=== PATIENT | female | born 1945 | race Caucasian/White ===

== ENCOUNTER 2017-05-03 06:01 | Emergency (ER) | payer MEDICARE ==
[~2017-05-03] VITALS: Ht 152.4 cm; Wt 77.1 kg
[~2017-05-03 06:01] MED LIST: ASPIRIN EC325 MG PO; CARDURA4 MG PO; CARTIA XT300 MG PO; LIPITOR40 MG PO; LOSARTAN-HCTZ1 EAC1 PO; NEURONTIN100 MG PO
[2017-05-13] MEDS ORDERED: ZOFRAN ODT4 MG PO (16:35)
[2017-05-13] MEDS ORDERED: LOSARTAN-HCTZ1 EAC1 PO (16:35)
[2017-05-13] MEDS ORDERED: ASPIRIN325 MG PO (16:35)
[2017-05-13] MEDS ORDERED: AMILORIDE HCL-H1 TAB PO (16:36)
[2017-05-13] MEDS ORDERED: ATORVASTATIN CA80 MG PO (16:36)
[2017-05-13] MEDS ORDERED: AMLODIPINE BESY10 MG PO (16:36)
[2017-05-13] MEDS ORDERED: ESCITALOPRAM OX20 MG PO (16:37)
== END 2017-05-03 11:22 | disposition home or self-care (01) ==
LOC: ED 06:01
DX: N95.0 Postmenopausal bleeding (principal); I12.9 Hypertensive chronic kidney disease with stage 1 through stage 4 chronic kidney disease, or unspecified chronic kidney disease; N18.9 Chronic kidney disease, unspecified; Z86.73 Personal history of transient ischemic attack (TIA), and cerebral infarction without residual deficits; Z87.891 Personal history of nicotine dependence; Z88.1 Allergy status to other antibiotic agents; Z79.82 Long term (current) use of aspirin; Z79.899 Other long term (current) drug therapy
CPT/HCPCS: 76830; 76856; 80053; 85025; 99284

== ENCOUNTER 2017-05-04 10:48 | Emergency (ER) | payer MEDICARE ==
[~2017-05-04] VITALS: Ht 152.4 cm; Wt 77.1 kg
[2017-05-13] MEDS ORDERED: ZOFRAN ODT4 MG PO (16:35)
[2017-05-13] MEDS ORDERED: LOSARTAN-HCTZ1 EAC1 PO (16:35)
[2017-05-13] MEDS ORDERED: ASPIRIN325 MG PO (16:35)
[2017-05-13] MEDS ORDERED: ATORVASTATIN CA80 MG PO (16:36)
[2017-05-13] MEDS ORDERED: AMLODIPINE BESY10 MG PO (16:36)
[2017-05-13] MEDS ORDERED: AMILORIDE HCL-H1 TAB PO (16:36)
[2017-05-13] MEDS ORDERED: ESCITALOPRAM OX20 MG PO (16:37)
== END 2017-05-04 14:15 | disposition home or self-care (01) ==
LOC: ED 10:48
DX: N93.9 Abnormal uterine and vaginal bleeding, unspecified (principal); I10 Essential (primary) hypertension; Z87.891 Personal history of nicotine dependence; Z88.1 Allergy status to other antibiotic agents; Z79.899 Other long term (current) drug therapy
CPT/HCPCS: 85025; 96360; 99284; J7040

== ENCOUNTER 2017-05-15 05:50 | Day surgery (SDC) | payer MEDICARE ==
[~2017-05-15] VITALS: Ht 154.9 cm; Wt 81.7 kg
[~2017-05-15 05:50] MED LIST changes: +AMILORIDE HCL-H1 TAB PO; +AMLODIPINE BESY10 MG PO; +ASPIRIN325 MG PO; +ATORVASTATIN CA80 MG PO; +ESCITALOPRAM OX20 MG PO; +ZOFRAN ODT4 MG PO
--- NOTE | 2017-05-15 08:50 | NUR ---
05/15/17 0850 Ivet Clinton 0825 PATIENT ARRIVES TO PACU UNRESPONSIVE TO PAIN OR VERBAL STIMULI. ORAL AIRWAY IN PLACE, MASK AT 6 LITERS.
--- NOTE | 2017-05-15 10:50 | NUR ---
1015 wants to rest longer.1040 up to br small red drainage. gilberto pad on. wants to get dressed declines offer of lunch. has taken crackers and jello and drank 200ml water.
--- NOTE | 2017-05-15 11:08 | NUR ---
REVIEWED DC INSTRUCTIONS WITH PT AND FAMILY STATES THEY UNDERSTAND AND NO QUESTIONS.
--- NOTE | 2017-05-16 09:42 | OR ---
[facility] [address] [place], [place] [address] Signed DATE OF OPERATION: 05/15/2017 SURGEON: Titi White MD PREOPERATIVE DIAGNOSES: Postmenopausal bleeding, cervical lesion, and cervical mass. POSTOPERATIVE DIAGNOSES: Postmenopausal bleeding, cervical lesion, cervical mass, and Asherman syndrome. PROCEDURE: Hysteroscopy with endometrial biopsy and colposcopy with cervical biopsies. VENIPUNCTURIST: Dr. Menon. ANESTHESIA: General. ESTIMATED BLOOD LOSS: 10 mL. SPECIMEN: Endometrium and cervical biopsies x4. DRAINS: None. FINDINGS: Vagina atrophic, small introitus. There is no blood seen. No lesions seen. No mass is palpable. The cervix was thin, was opened approximately 1.5 cm with minimal anterior cervix and even less posterior cervix. There was apparent necrotic tissue in the os mostly along the posterior endocervix. The previously seen polypoidal mass is no longer present, but the cervix did appear dilated as if mass had been present recently. Uterine cavity had multiple adhesions between the anterior and posterior marley in the lower uterine cavity with only a small opening that did finally enlarge into normal-appearing upper cavity with 2 ostia seen and upper endometrial tissue appearing thin normal and otherwise normal in appearance. No polyps or fibroids were seen. COMPLICATIONS: Electronically Signed By: TITI WHITE MD 05/16/17 0942 PATIENT NAME: SHANE RAMOS OPERATIVE REPORT DATE OF : 47 PHYSICIAN: TITI WHITE MD REPORT #: [id number] REPORT IS CONFIDENTIAL AND NOT TO BE RELEASED WITHOUT AUTHORIZATION [facility] [address] [place] [place] [address] Signed None. DESCRIPTION OF PROCEDURE: The patient was brought to the operating room, placed in supine position. After adequate general anesthesia was obtained, she was placed in a dorsal lithotomy position, prepped and draped in usual sterile fashion. A weighted speculum was placed in the vagina and a [place] placed anteriorly, the above findings were noted. The hysteroscope easily entered the cervix into the lower segment. At this point, the cavity appeared quite small, but one small channel could be seen going up higher into the uterus. The MyoSure LITE biopsy instrument was then placed through the hysteroscope and the lower segment endometrial tissue was carefully biopsied and taken down. Under direct visualization, this was done small pieces at the time and taking particular attention to stay within the cavity after biopsying the lower segment, the upper uterine cavity was then easily visualized. Once good view of the uterine cavity was seen, the lower segment was biopsied further and the upper cavity sampled again with MyoSure LITE. Sterile saline was used as the distending medium and the fluid deficit noted was 960 mL, but the socks under the patient was soaked and most of the loss was noted right at the beginning when much of fluid was spilling out of the vagina and could not be collected, so the actual estimated fluid loss was only about 300 mL. Good hemostasis was noted in the uterine cavity, so the hysteroscope was removed, cervix examined further. Stitches of 0 chromic were placed at 3 o'clock and 9 o'clock in the cervix for retention and control bleeding. Acetic acid was placed on the cervix, but no acetowhite lesions were seen. Lugol's solution was also attempted, but no obvious lesions were seen this way either. There was a grayish necrotic-looking area at 6 o'clock and again the entire cervix was quite thin and so it was decided not to proceed with cone biopsy because of the minimum cervical tissue left and so a 4-quadrant biopsies were done at 6 o'clock, 3 o'clock, 9 o'clock, and 12 o'clock. The Bovie was used to cauterize any small amount of bleeding and then Monsel's placed in the cervix. Sheet of ACell was then placed in the cervical os and tied in place with retention stitches. Good hemostasis was noted. All instruments removed from the vagina. The patient tolerated the procedure well, went to recovery room in good condition. The sponge, needle, and instrument counts were correct at the end of the procedure. MD MATHEW Argueta/MODL /[id number] Electronically Signed By: TITI WHITE MD 05/16/17 0942 PATIENT NAME: SHANE RAMOS OPERATIVE REPORT DATE OF : 47 PHYSICIAN: TITI WHITE MD REPORT #: [id number] REPORT IS CONFIDENTIAL AND NOT TO BE RELEASED WITHOUT AUTHORIZATION [facility] [address] [place] [address] [place] [address] Signed cc: Ignacio Bell DO Electronically Signed By: TITI WHITE MD 05/16/17 0942 PATIENT NAME: SHANE RAMOS ANN OPERATIVE REPORT DATE OF : 47 PHYSICIAN: TITI WHITE MD REPORT #: [id number] REPORT IS CONFIDENTIAL AND NOT TO BE RELEASED WITHOUT AUTHORIZATION
== END 2017-05-15 11:00 | disposition home or self-care (01) ==
LOC: OPS 05:50 → DS 05:50 → OPS 06:45
PROVIDERS: General Practice
PROC: 0UDB8ZX Extraction of Endometrium, Via Natural or Artificial Opening Endoscopic, Diagnostic (ICD-10-PCS; principal; 2017-05-15 06:45)
DX: N72 Inflammatory disease of cervix uteri (principal); N80.0 Endometriosis of uterus; I12.9 Hypertensive chronic kidney disease with stage 1 through stage 4 chronic kidney disease, or unspecified chronic kidney disease; N18.3 Chronic kidney disease, stage 3 (moderate); R73.01 Impaired fasting glucose; M85.80 Other specified disorders of bone density and structure, unspecified site; G62.9 Polyneuropathy, unspecified; F32.9 Major depressive disorder, single episode, unspecified; I87.8 Other specified disorders of veins; Z87.891 Personal history of nicotine dependence; Z86.73 Personal history of transient ischemic attack (TIA), and cerebral infarction without residual deficits; Z88.8 Allergy status to other drugs, medicaments and biological substances; Z98.890 Other specified postprocedural states; Z79.899 Other long term (current) drug therapy
CPT/HCPCS: 00952; 88305; J1100; J1644; J2250; J2405; J2704; J3010; J7120

== ENCOUNTER 2017-08-08 19:40 | Emergency (ER) | payer MEDICARE ==
[~2017-08-08] VITALS: Ht 154.9 cm; Wt 81.7 kg
[2017-08-08] MEDS ORDERED: K-TAB ER20 MEQ PO (22:04)
== END 2017-08-08 22:34 | disposition home or self-care (01) ==
LOC: ED 19:40
DX: R51 Headache (principal); E87.6 Hypokalemia; E86.0 Dehydration; I10 Essential (primary) hypertension; Z86.73 Personal history of transient ischemic attack (TIA), and cerebral infarction without residual deficits; Z88.8 Allergy status to other drugs, medicaments and biological substances; Z88.1 Allergy status to other antibiotic agents; Z88.2 Allergy status to sulfonamides; Z79.899 Other long term (current) drug therapy
CPT/HCPCS: 70450; 80053; 85025; 96374; 99284; J1170; J7030

== ENCOUNTER 2018-05-01 14:13 | Inpatient (IN) | payer MEDICARE, OTHER ==
[~2018-05-01] VITALS: Ht 154.9 cm; Wt 85.0 kg
[~2018-05-01 14:13] MED LIST changes: +K-TAB ER20 MEQ PO
--- OUTSIDE RECORDS SUMMARY | 2018-05-01 14:18 | XMS ---
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 E[facility]ero[facility] VISIT COUNT (12 MO.) 5 NOEL Haywood TOTAL 5 NOTE: Visits indicate total known visits. 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 - Personal history of transient ischemic attack (TIA), and cerebral infarction without residual deficits - Essential (primary) hypertension - Allergy status to other drugs, medicaments and biological substances status - Allergy status to sulfonamides status - Headache - Allergy status to other antibiotic agents status - Dehydration - Hypokalemia 05/05/2017 00:00 NOEL Arcin[facility] OR TYPE: Emergency COMPLAINT: - VAGINAL BLEEDING 05/04/2017 10:49 NOEL Arcin[facility] OR TYPE: Emergency COMPLAINT: - VAGINAL BLEEDING DIAGNOSES: - Essential (primary) hypertension - Personal history of nicotine dependence - Allergy status to other antibiotic agents status - 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 - Complication associated with artificial fertilization, unspecified - Abnormal uterine and vaginal bleeding, unspecified 05/03/2017 06:01 NOEL Arcin[facility] OR TYPE: Emergency COMPLAINT: - VAGINAL BLEEDING DIAGNOSES: - Personal history of transient ischemic attack (TIA), and cerebral infarction without residual deficits - Allergy status to other antibiotic agents status - Hypertensive chronic kidney disease with stage 1 through stage 4 chronic kidney disease, or unspecified chronic kidney disease - 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
[2018-05-01] MEDS ORDERED: NEURONTIN100 MG PO (14:35)
[2018-05-01] MEDS ORDERED: DEMADEX20 MG PO (14:36)
--- NOTE | 2018-05-01 17:30 | NUR ---
IV SITE INTACT, NO SWELLING OR REDNESS NOTED, PT DENIES PAIN AT SITE, FLUIDS INFUSING EASILY. INSULIN DRIP TITRATED TO 7.2 UNITS/HR AT 1720.
--- NOTE | 2018-05-01 18:11 | NUR ---
BLOOD SUGAR 378. TITRSTED DRIP TO 6. 20G IV STARTED IN LEFT FOREARM. PT TOLERATED WELL. LEVAQUIN INFUSING. ASSESSMENT COMPLETED. LUNGS CLEAR, PT WITH FORGETFULNESS. DISORIENTED TO DATE. BOWEL TONES ACTIVE. DAUGHTER REPORTS PT IS VERY REGULAR. PT UNABLE TO REMEMBER LAST BM. STRENTH +5 UPPER AND LOWER EXTREMITIES. PULSES +2. REPORTS "DRAGGING" OF RLE AT TIMES. WOUND ON RLE COVERED WITH GAUZE. +1 EDEMA RLE AND TRACE IN LLE. RASH NOTED UNDER PANUS AREA. NYSTATIN ORDERED. ATTNEDS IN PLACE.
--- NOTE | 2018-05-01 19:03 | NUR ---
BLOOD SUGAR 334. NO TITRATION. WATER REFRESHED. PT FINISHED SOME DINNER WITH NO N/V. UP TO BSC. VOIDED 250. BACK TO BED.
--- NOTE | 2018-05-01 20:37 | NUR ---
UPDATED DR. DUFFY ABOUT PATIENT'S POTASSIUM OF 3.2. ALSO NOTIFIED HER THAT PATIENT'S INSULIN GTT WAS INCREASED TO 9 UNITS/HR. NEW ORDER FOR NORMAL SALINE WIH 20 MEQ OF K TO INFUSE AT 100 ML/HR MAINTENANCE FLUIDS.
--- NOTE | 2018-05-01 21:27 | NUR ---
PATIENT UP TO BEDSIDE COMMODE, 2PA. GAIT IS UNSTEADY, PATIENT STATES THIS IS ABNORMAL FOR HER. DENIES FEELING LIGHT HEADED WHILE STANDING, VITALS REMAIN WNL WHILE STANDING. PATIENT ABLE TO VOID DILUTE URINE IN COMMODE. NOW RESTING IN BED AGAIN, BREATHING IS EVEN AND UNLABORED. DENIES FURTHER NEEDS. IVF INFUSING PER ORDER, INSULIN GTT TITRATED TO 6.3 UNITS/HR AT 2100. CALL LIGHT WITHIN REACH, BED ALARM ON.
--- NOTE | 2018-05-01 22:00 | NUR ---
BLOOD GLUCOSE OF 224, INSULIN GTT TITRATED TO 5.1 UNITS/HR. PATIENT RESTFUL IN BED, BREATHING IS EVEN AND UNLABORED. DENIES NEEDS AT THIS TIME. CALL LIGHT WITHIN REACH, BED ALARM ON. IVF INFUSING PER ORDE.
--- NOTE | 2018-05-01 22:37 | NUR ---
UPDATED DR. DUFFY ABOUT PATIENT'S POTASSIUM VALUE OF 3.0. PATIENT IS ON MAINTENANCE FLUIDS WITH 20 MEQ OF POTASSIUM ADDED. 2O MEQ PO POTASSIUM X1 ORDERED.
--- NOTE | 2018-05-01 23:00 | NUR ---
BLOOD SUGAR OF 204, INSULIN GTT TITRATED TO 4.2 UNITS/HR. PATIENT CONTINUES TO DENIES NEEDS. CALL LIGHT WITHIN REACH, BED ALARM ON.
--- NOTE | 2018-05-02 | NUR ---
PATIENT UP TO BEDSIDE COMMODE, 2PA. PATIENT GAIT IS UNSTEADY, DENIES FEELING LIGHT HEADED OR DIZZY. ABLE TO VOID DILUTE URINE. NOW RESTING IN BED AGAIN, BREATHING IS EVEN AND UNLABORED. DENIES FURTHER NEEDS AT THIS TIME. ASSESSMENT DONE. NO ACUTE CHANGE TO REDENNED AREA TO RIGHT LEG, DRESSING REMAINS CDI. VITALS WNL. INSULIN GTT TITRATED TO 3.6 UNITS/HR WIH BG OF 178. IVF CHANGED TO D5 1/2 NS WITH 20 K AT 125 ML/HR DUE TO BG <200 PER ORDER. CALL LIGHT WITHIN REACH, BED ALARM ON.
--- NOTE | 2018-05-02 01:00 | NUR ---
BG 191, INSULIN GTT TITRATED TO 4.2 UNITS/HR. PATIENT DENIES NEEDS. CALL LIGHT WITHIN REACH, BED ALARM ON.
--- NOTE | 2018-05-02 01:44 | NUR ---
PATIENT UP TO BEDSIDE COMMODE, 2PA. GAIT REMAINS UNSTEADY. NOW RESTING IN BED AGAIN, BREATHING IS EVEN AND UNLABORED. DENIES FURTHER NEEDS AT THIS TIME. CALL LIGHT WITHIN REACH, BED ALARM ON. IVF INFUSING PER ORDER, INSULIN GTT INFUSING.
--- NOTE | 2018-05-02 02:13 | NUR ---
BG 178, INSULIN GTT TITRATED TO 3.6 UNITS/HR.
--- NOTE | 2018-05-02 03:00 | NUR ---
PT'S CB, IV INSULIN DRIP TITRATED UP TO 5.1 UNITS/HR, TWO RN VERIFIED WITH OSVALDO LOPEZ, PT ASSISTED FROM BED TO BSC WITH 2PA, PT VOIDED 275 MLS OF URINE, PT BACK TO BED, IV FLUIDS INFUSING PER EMAR WNL, BED ALARM ON, FALL PRECAUTIONS IN PLACE. NO FURTHER REQUESTS, CALL LIGHT WITHIN REACH.
--- NOTE | 2018-05-02 04:06 | NUR ---
PATIENT RESTFUL WITH EYES CLOSED. BREATHING IS EVEN AND UNLABORED. DENIES NEEDS AT THIS TIME. BG 211, INSULIN GTT TITRATED TO 4.2 UNITS/HR. CALL LIGHT WITHIN REACH, BED ALARM ON.
--- NOTE | 2018-05-02 05:00 | NUR ---
CBG 213, TITRATED INSULIN GTT TO 5.6 UNITS/HR. PATIENT RESTFUL WITH EYES CLOSED. CALL LIGHT WITHIN REACH, BED ALARM ON.
--- NOTE | 2018-05-02 06:27 | NUR ---
PATIENT PULLED IV SITE AND ATTEMPTING TO GET OUT OF BED WITHOUT ASSISTANCE. EDUCATED PATIENT ABOUT NEED FOR ASSISTANCE DUE TO CURRENT CONDITION. PATIENT STATES "I DON'T NEED HELP, I JUST WANT TO GO HOME." PATIENT IS UNAWARE OF SURROUNDINGS AND REASON FOR HOSPITALIZATION. ASSISTED TO BEDSIDE COMMODE WITH 2PA, GAIT REMAINS UNSTEADY AND WEAK. NOW RESTING IN BED AGAIN, BREATHING IS EVEN AND UNLABORED. NEW IV STARTED, IVF AND INSULIN GTT STARTED AGAIN. CALL LIGHT WITHIN REACH, BED ALARM ON.
--- NOTE | 2018-05-02 07:01 | NUR ---
CBG 169, INSULIN GTT TITRATED TO 4 UNITS/HR. PATIENT RESTFUL IN BED. DENIES NEEDS. CALL LIGHT WITHIN REACH, BED ALARM ON.
--- NOTE | 2018-05-02 08:00 | NUR ---
PT'S BLOD GLUCOSE [address] DUFFY AT THE BEDSIDE, I HAVE STOPPED THE INSULIN GTT AT THIS TIME. NEW ORDERS FOR LANTUS AND SLIDING SCALE ORDERED. ASSESSMENT COMPLETED AT THIS TIME. PT IS PLEASANT, CALM, COOPERATIVE AND RESTING IN BED WATCHING TV. PT STATES SHE HAS NO PAIN. NO N/V. NO SOB OR BREATHING ISSUES. ROOM AIR. BOTH PIV IN LEFT AND RIGHT FA FLUSH WELL AND WNL. PT'S LUNGS ARE CLEAR/DIM. HYPOACTIVE BOWEL TONES. RLE WOUND ASSESSED-CLEAN, DRY, INTACT- REINFORCED DRESSING. CELLULITIS OUTLINED BY NOC RN ON PREVIOUS SHIFT- REDNESS HAS NOT GONE OUT OF THE OUTLINE. PT IS AWAKE AND ALERT BUT CONFUSED AND DISORIENTED. KNOWS SELF AND SITUATION OF BEING IN HOSPITAL BUT DOESN'T KNOW DATE OR TIME. SHORT TERM MEMORY LOSS AND NEEDS REMINDING/ REINFORCMENT. BED ALARM IN PLACE. PT'S BREAKFAST HAS JUST ARRIVED AND SHE HAS NO QUESTIONS OR CONCERNS. CALL LIGHT WITHIN REACH. FALL PRECAUTION IN PLACE. WILL CONTINUE TO MONITOR.
--- NOTE | 2018-05-02 09:30 | NUR ---
FULL BATH GIVEN WHILE PT SITTING UP OUT OF BED ON COMMODE. FACED WASHED AND TEETH/DENTURES BRUSHED AND LINENS CHANGED. PT URINATED WELL HAD A MEDIUM, HARD BM INTO THE COMMODE. PT STILL HAS NO C/O PAIN AND IS COMFORTABLE/ VERY PLEASANT. PT BACK TO BED WITH BED ALARM IN PLACE.
--- NOTE | 2018-05-02 10:20 | NUR ---
INSULIN GTT HAS BEEN OFF SINCE 0800 BUT I RECHECKED GLUCOSE AND WAS 299. I INFORMED DR. DUFFY AT THIS TIME THAT IT IS ELEVATED. VERBAL ORDER GIVEN TO DC D51/2NS WITH 20 MEQ KCHLOR. PT'S FAMILY MEMBER AT THE BEDSIDE. PT HAS NO QUESTIONS OR CONCERNS. NO PAIN. CALL LIGHT WITHIN REACH. FALL PRECAUTIONS IN PLACE INCLUDING BED ALARM; WILL CONTINUE TO MONITOR.
[2018-05-02] MEDS ORDERED: K-TAB ER20 MEQ PO (10:57)
--- NOTE | 2018-05-02 11:20 | NUR ---
REPORT GIVEN TO RECEIVING RN ON MED SURG UNIT. PT TRANSFERED AT THIS TIME TO ROOM 110 WITH ALL BELONGINGS AND FAMILY AT THE BEDSIDE. TRANSFER COMPLETE.
--- NOTE | 2018-05-02 12:20 | NUR ---
PATIENT REPORT RECEIVED FROM YOEL LOPEZ FROM CCU, PATIENT TX VIA BED TO THE MEDICAL FLOOR. PATIENT IS ON RA AND IS ALERT AND ORIENTED. DAUGHTER REMAINS AT BEDSIDE AND GLUCOSE CHECK DONE 349 AT THIS TIME.
--- NOTE | 2018-05-02 12:41 | NUR ---
PATIENT TX FROM THE COMMODE TO THE BED, PATIENT IS UNSTEADY ON HER FEET AND NEEDS ASSISTANCE WITH TRANSFERRS. SHE ONLY WAS ABLE TO EAT 20% OF HER LUNCH AT THIS TIME.
--- NOTE | 2018-05-02 13:47 | NUR ---
Medications reconciled with patient's med list
--- NOTE | 2018-05-02 14:29 | NUR ---
PATIENT 1 PERSON ASSIST UP TO THE COMMODE TO VOID THEN TX TO THE CHAIR. PATIENT STILL UNSTEADY ON HER FEET AND NEEDS TO HAVE ASSISTANCE WITH TRANSFERS.
--- NOTE | 2018-05-02 17:54 | NUR ---
PATIENT 2 PERSON ASSIST UP TO THE BATHROOM WITH FWW. PATIENT AMBULATES SLOW AND IS UNSTEADY ON HER FEET BUT WALKED WELL WITH 2 PEOPLE.
--- NOTE | 2018-05-02 19:03 | NUR ---
RECEIVED REPORT FROM JOHN ARREOLA. WHITEBOARD UPDATED. pt ALERT AND AWAKE. CALL LIGHT WITHIN REACH. NO REQUESTS AT THIS TIME.
--- NOTE | 2018-05-02 20:16 | NUR ---
HELPED PT TO THE BATHROOM AND BACK TO BED WITH HER FWW. BEDSIDE TABLE AND CALL LIGHT IN REACH.
--- NOTE | 2018-05-02 20:46 | NUR ---
VITALS AND I&OS DONE AND CHARTED. FRESH ICE WATER GIVEN. BEDSIDE TABLE AND CALL LIGHT GIVEN. CHAPSTICK GIVEN WELL. PT NEEDS NOTHING AT THIS TIME.
--- NOTE | 2018-05-02 21:17 | NUR ---
ASSESSMENT AND MEDICATIONS DUE. pt ALERT AND COOPERATIVE. EXPRESSED CONCERN OVER HER ANIMALS AT HOME. ASSESSMENT DONE. RIGHT LEG REDNESS WITHIN THE OUTLINE, GAUZE WRAP C/D/I, WARM TO TOUCH. UP TO TOILET. 1PA, FWW. SETTLED IN BED. CALL LIGHT WITHIN REACH. NO REQUESTS AT THIS TIME.
--- NOTE | 2018-05-02 21:45 | NUR ---
HELPED PT TO RESTROOM 1PA WITH FWW AND TO THE CHAIR. SHE DENIES FURTHER NEEDS. CALL LIGHT IS CLOSE.
--- NOTE | 2018-05-03 00:48 | NUR ---
pt UP TO TOILET. 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
--- NOTE | 2018-05-03 02:54 | NUR ---
ROUNDED ON pt. RESTING WITH EYES CLOSED, RESPIRATIONS REGULAR. RATE = 14. CALL LIGHT WITHIN REACH. BED ALARM ON.
--- NOTE | 2018-05-03 03:51 | NUR ---
CALL LIGHT ON. ASSISTED pt TO TOILET AND BACK TO BED. ASSESSMENT DONE. BED ALARM ON. CALL LIGHT WITHIN REACH. pt RESTING IN BED WATCHING TV.
--- NOTE | 2018-05-03 05:19 | NUR ---
pt RESTED MOST OF SHIFT. 1PA, FWW. UP TO TOILET, UNSTEADY. CELLULITIS ON RIGHT BARKSDALE IS OUTLINED. SORE ON RIGHT CALF IS WRAPPED, C/D/I. ACCU CHECK ACHS. VOIDING QS. IVS ARE SL. TOLERATING ADA DIET. IMPULSIVE, BED ALARM ON. USES CALL LIGHT SOMETIMES.
--- NOTE | 2018-05-03 05:49 | NUR ---
HELPED PT TO THE BATHROOM AND BACK TO BED WITH HER FWW. VITALS AND I&OS DONE AND CHARTED. CLEANED ROOM AND EMPTIED GARBAGES. FRESH WATER GIVEN. BEDSIDE TABLE AND CALL LIGHT IN REACH.
--- NOTE | 2018-05-03 07:30 | NUR ---
PATIENT SITTING UP IN CHAIR. CHAIR ALARM ON. HANDS AND FACE CLEANED. LINENS CHANGED. CALL LIGHT WITHIN REACH. NO OTHER NEEDS AT THIS TIME
--- NOTE | 2018-05-03 07:33 | NUR ---
took patients blood sugar it was 239 will report to nurse
--- NOTE | 2018-05-03 07:37 | NUR ---
PT SITTING IN CHAIR AT THIS TIME. PT ON RA, RESP EVEN AND NON LABORED. PT DENIES PAIN AT THIS TIME. PERSONAL SUPPLIES AND CALL LIGHT WITHIN REACH. PT DENIES NEED TO VOID. NO NEEDS AT THIS TIME.
--- NOTE | 2018-05-03 09:39 | NUR ---
PATIENT SITTING UP IN CHAIR. CHAIR ALARM ON. ORAL CARE DONE. VITAL SIGNS AND I&O DONE. CALL LIGHT WITHIN REACH. NO OTHER NEEDS AT THIS TIME
--- NOTE | 2018-05-03 13:59 | NUR ---
PT SITTING UP IN CHAIR VISITING WITH FAMILY. PT REMAINS ON RA, RESP EVEN AND NON LABORED. PT DENIES PAIN AND NEEDS. PERSONAL SUPPLIES AND CALL LIGHT WITHIN REACH.
--- NOTE | 2018-05-03 17:45 | NUR ---
PT ON RA. SL. 1PA WITH WALKER TO BR. FORGETFUL. DENIES PAIN. S/S INSULIN. BS CHECKS. PT A BIT UNSTEADY ON FEET. CHAIR AND BED ALARM. CELLULITIS TO RIGHT BARKSDALE IS OUTLINED.
--- NOTE | 2018-05-03 19:00 | NUR ---
REPORT RECEIVED, PT RESTING IN BED, TURNED TO RIGHT SIDE, NO SIGNS OF DISCOMFORT OR RESTLESNESS, CERDA CATH DRAINING WNL, ON 1LNC, O2 SAT 99%, HR 108, CALL LIGHT WITHIN REACH, FALL PRECAUTIONS IN PLACE. IV FLUIDS INFUSING PER EMAR WNL.
--- NOTE | 2018-05-03 20:48 | NUR ---
ROUNDED CHARGE. PATIENT ASSISTED TO THE RESTROOM. PATIENT IS A 1PA W/FWW. PATIENT WAS ABLE TO VOID AND HAD A SMALL BM. LUIS RN IN ROOM TO ASSIST PATIENT BACK TO BED. PATIENT DENIES ANY COMMENTS, QUESTIONS OR CONCERNS. NO NEEDS NOTED
--- NOTE | 2018-05-03 21:06 | NUR ---
IN ROOM TO ADMIN SCHED MEDS, ASSESSMENT COMPLETE, PT ALERT, DISORIENTED TO PLACE, TIME, PT ORIENTED TO PERSON/ . PT AWARE SHE IS IN HOSPITAL BUT NOT [place], REORIENTATION PROVIDED, REASSURANCE PROVIDED, PT VERY PLEASANT, DRESSING NOTED ON PT'S RIGHT ANKLE/BARKSDALE, DRESSING C/D/I, OUTLINE NOTED, REDNESS HAS RECEEDED FROM OUTLINE, MILDLY WARM TO THE TOUCH, PT DENIES ANY PAIN OR DISCOMFORT AT THIS TIME. PT'S CBG 294, INSULIN COVERAGE PROVIDED PER S/S. PT IN BED RESTING AT THIS TIME, NO REQUESTS AT THIS TIME, CALL LIGHT WITHIN REACH. FALL PRECAUTIONS IN PLACE. IV SL, FLUSHES WELL, ON RA, VSS. BED ALARM ON.
--- NOTE | 2018-05-03 21:07 | NUR ---
VITALS AND I&OS DONE AND CHARTED. GARBAGES EMPTIED. FRESH WATER GIVEN. BEDSIDE TABLE AND CALL LIGHT IN REACH. PT NEEDS NOTHING AT THIS TIME.
--- NOTE | 2018-05-03 22:18 | NUR ---
PT RESTING IN BED, WATCHING TV, DENIES ANY NEEDS AT THIS TIME, CALL LIGHT WITHIN REACH. FALL PRECAUTIONS IN PLACE, BED ALARM ON.
--- NOTE | 2018-05-03 23:25 | NUR ---
PT RESTING IN BED, EYES CLOSED BREATHS EVEN, UNLABORED, NO REQUESTS AT THIS TIME, CALL LIGHT WITHIN REACH. FALL PRECAUTIONS IN PLACE. BED ALARM ON.
--- NOTE | 2018-05-04 00:43 | NUR ---
PT ASSISTED FROM BED TO BATHROOM WITH 1PA/FWW, PT TOLERATED WELL, VOIDED 300 MLS OF CLEAR YELLOW URINE, BACK TO BED NOW, HYDRATION AT BEDSIDE, FALL PRECAUTIONS IN PLACE, BED ALARM ON, NO FURTHER REQUESTS AT THIS TIME.
--- NOTE | 2018-05-04 02:00 | NUR ---
PT RESTING IN BED, EYES CLOSED, BREATHS EVEN, UNLABORED, NO REQUESTS AT THIS TIME, CALL LIGHT WITHIN REACH, FALL PRECAUTIONS IN PLACE, BED ALARM ON.
--- NOTE | 2018-05-04 04:00 | NUR ---
PT UP TO BEDSIDE CHAIR, WATCHING TV, NO REQUESTS AT THIS TIME, CHAIR ALARM ON, CALL LIGHT WITHIN REACH, FALL PRECAUTIONS IN PLACE. HYDRATION WITHIN REACH.
--- NOTE | 2018-05-04 04:37 | NUR ---
PT ALERT THIS SHIFT, ORIENTED TO SELF/, DISORIENTED TO PLACE, EVENT, TIME, PT APPROPRIATE, SLEPT WELL THIS SHIFT, ON RA, 1PA/FWW TO BATHROOM. URINE OUTPUT QS, DENIES PAIN, S/S INSULIN. PT FORGETFUL, IMPULSIVE, BED ALARM ON. CELLULITIS TO RIGHT BARKSDALE OUTLINED, DRESSING C/D/I.
--- NOTE | 2018-05-04 04:57 | NUR ---
PT RESTING IN CHAIR, CHAIR ALARM ON, NO REQUESTS AT THIS TIME, CALL LIGHT WITHIN REACH, FALL PRECAUTIONS IN PLACE. PT DENIES DESIRE TO RETURN TO BED AT THIS TIME, WATCHING TV.
--- NOTE | 2018-05-04 05:33 | NUR ---
PT UP TO BATHROOM WITH 1PERSON SBA/FWW, PT TOLERATED AMBULATION WELL, NO C/O LIGHT HEADEDNESS OR DIZZINESS, PT VOIDED, AND HAD MODERATE SIZED BM, PT BACK TO BEDSIDE CHAIR NOW, CHAIR ALARM ON, HYDRATION AT BEDSIDE. VSS, NO REQUESTS AT THIS TIME, CALL LIGHT WITHIN REACH, CHAIR ALARM ON, FALL PRECAUTIONS IN PLACE.
--- NOTE | 2018-05-04 07:30 | NUR ---
REPORT RECIEVED FROM JOHN SMITH. PT AWAKE AND SITTING UP IN CHAIR. PLEASANTLY CONFUSED AND STATES SHE IS READY FOR BREAKFAST. STATES SHE WANTS TO GO BACK TO [employer]. CELLULITIS OUTLINED ON RLE.
--- NOTE | 2018-05-04 08:01 | NUR ---
PT EATING BREAKFAST. GIVEN INSULIN AND MORNING MEDS. EXPLAINED PURPOSE AND SIDE EFFECTS. HOOKED UP TO IV AB. FLUSHED WELL.
--- NOTE | 2018-05-04 09:27 | NUR ---
PATIENT UP TO BATHROOM AND BACK TO CHAIR 1 PA FWW. JUDIE MOORE. ORAL CARE DONE. FRESH WATER GIVEN. SISTER IN ROOM. CALL LIGHT IN REACH. NO FURTHER NEEDS AT THIS TIME.
--- NOTE | 2018-05-04 09:50 | NUR ---
CALLED AND TALKED WITH YOEL AND GLENDY FROM [facility] ABOUT THIS PT AND THEIR ABILITY TO GIVE THE PT SLIDING SCALE INSULIN AND LA INSULIN, ALSO DISCUSSED WOUND CARE. THEY STATED THEY ARE ABLE TO GIVE HER THE INSULIN WITHOUT ISSUE AND THEY HAVE THE PT ALREADY SET UP WITH THE WOUND CLINIC TO TAKE CARE OF THE WOUND ON HER LEG. INFORMED DR DUFFY OF THIS.
[2018-05-04] MEDS ORDERED: LANTUS100 UNITS/ SUB-Q (10:12)
[2018-05-04] MEDS ORDERED: HUMALOG100 UNITS/ SUB-Q (10:12)
[2018-05-04] MEDS ORDERED: LEVAQUIN500 MG PO (10:20)
--- NOTE | 2018-05-04 10:24 | NUR ---
IV TAKEN OUT UPON RN REQUEST. IV INTACT AND LOOKED GOOD. PATIENT DRESSED. CALL LIGHT IN REACH. NO FURTHER NEEDS AT THIS TIME.
--- NOTE | 2018-05-04 11:42 | NUR ---
PT DRESSED AND READY FOR DC. SHE SEEMS EXCITED AND PLEASED THAT SHE IS ABLE TO GO BACK TO [facility]. SISTER IS IN WITH PT, BOTH PLEASANT, JUST WAITING FOR RIDE. EXTENDED BLESSING, WILL FOLLOW NEEDED
--- NOTE | 2018-05-04 12:35 | NUR ---
PT IV REMOVED WNL. EDUCATION PROVIDED TO PT AND SISTERS BY THIS RN, PHARMACY AND CONSULTING TECHNICAL MANAGER JANINA. THEY VERBALIZED UNDERSTANDING. PT ATE LUNCH AND HAD MEAL INSULIN. PT EXCITED TO BE GOING BACK TO [employer]. VS STABLE. PT DRESSED.
--- NOTE | 2018-05-04 12:36 | NUR ---
LATE ENTRY FROM 11:55 AM: I WAS ASKED BY NURSING TO TALK TO PATIENT ABOUT EATING FOR A NEW DIAGNOSIS OF DIABETES. PATIENT'S SISTER WAS IN THE ROOM - BOTH WERE ENGAGED IN THE CONVERSATION. DIABETES "RUNS RAMPANT" IN THEIR FAMILY. I PROVIDED A LIST OF LOW-CARB SNACK IDEAS, A 1500 CALORIE MENU WITH EXCHANGE LIST, AND A BOOKLET FOR NEW DIABETES PATIENTS. I ALSO REMINDED PATIENT TO NEVER SKIP MEALS. THEY APPRECIATED THE INFO AND MY SUGGESTIONS. I ALSO PROVIDED THE ASSISTANT ACCOUNTING MANAGER'S NAME AND NUMBER AND FOR THE PATIENT OR HER SISTER TO CALL TO INQUIRE ABOUT THE DIABETES GROUP EDUCATION CLASSES.
== END 2018-05-04 12:20 | disposition home or self-care (01) | DRG 638 ==
LOC: ED 14:13 → MS 16:37 → CCU 16:37 → MS 05-02 11:20
PROVIDERS: ADMIT Internal Medicine
DX: E11.65 Type 2 diabetes mellitus with hyperglycemia (principal); L03.115 Cellulitis of right lower limb; F01.50 Vascular dementia, unspecified severity, without behavioral disturbance, psychotic disturbance, mood disturbance, and anxiety; E11.22 Type 2 diabetes mellitus with diabetic chronic kidney disease; I12.9 Hypertensive chronic kidney disease with stage 1 through stage 4 chronic kidney disease, or unspecified chronic kidney disease; N18.3 Chronic kidney disease, stage 3 (moderate); E83.39 Other disorders of phosphorus metabolism; Z86.73 Personal history of transient ischemic attack (TIA), and cerebral infarction without residual deficits; Z87.891 Personal history of nicotine dependence; L89.512 Pressure ulcer of right ankle, stage 2; E11.622 Type 2 diabetes mellitus with other skin ulcer
CPT/HCPCS: 36415; 51701; 80048; 80053; 81001; 82010; 82803; 83735; 84100; 85025; 92610; 96361; 96374; 96376; 99284-25; J1650; J1815; J1956; J7030; J7060

== ENCOUNTER 2025-04-11 11:44 | Emergency (ER) | payer MEDICARE, OTHER ==
[~2025-04-11] VITALS: Ht 154.9 cm; Wt 76.6 kg
[~2025-04-11 11:44] MED LIST changes: +DEMADEX20 MG PO; +HUMALOG100 UNITS/ SUB-Q; +LANTUS100 UNITS/ SUB-Q; +LEVAQUIN500 MG PO
[2025-04-11] MEDS ORDERED: OLANZapine 10 MG VIAL IM ONE ×2 (14:00→20:15)
[2025-04-11] MEDS ORDERED: OLANZAPINE ODT10 MG PO (14:38)
[2025-04-11] MEDS ORDERED: FENTANYL 100 MCG/HR TD ONE (15:45)
[2025-04-11] MEDS ORDERED: FENTANYL 50 MCG/HR 1 EA TDSY TD ONE (16:00)
[2025-04-11] MEDS ORDERED: FENTANYL1 EAC1 TD (16:12)
[2025-04-14] MEDS ORDERED: fentaNYL 1 EACH TDSY TD SCH (09:00)
== END 2025-04-11 20:45 | disposition home or self-care (01) ==
LOC: ED 11:44
DX: S09.90XA Unspecified injury of head, initial encounter (principal); F01.511 Vascular dementia, unspecified severity, with agitation; Z51.5 Encounter for palliative care; W19.XXXA Unspecified fall, initial encounter; Y92.129 Unspecified place in nursing home as the place of occurrence of the external cause
CPT/HCPCS: 96372; 99284